=== PATIENT | male | born 1985 | race Hispanic/Latino ===

== ENCOUNTER 2024-04-14 19:47 | Emergency (ER) | payer BC ==
[2024-04-14 20:39] LABS: #Basophils 0.07 10x3/uL (0.0-0.2); #Eosinophils 0.14 10x3/uL (0.0-0.5); #Monocytes 1.48 10x3/uL (0.0-1.1); #Neutrophils 12.04 10x3/uL (1.5-8.4); %Basophils 0.5 % (0.0-2.0); %Eosinophils 0.9 % (0.0-6.0); %Lymphocytes 9.8 % (18.0-47.0); %Monocytes 9.7 % (0.0-10.0); %Neutrophils 78.8 % (40.0-75.0); Hematocrit 43.1 % (38.8-50.0); Hemoglobin 14.8 g/dL (13.5-17.5); Mean Corpuscular HGB CONC 34.3 g/dL (32.0-36.0); Mean Corpuscular Hemoglobin 30.7 pg (27.0-33.0); Mean Corpuscular Volume 89.4 fL (81.2-95.1); Mean Platelet Volume 10.7 fL (7.4-10.4); Platelet Count 241 10x3/uL (150-450); RBC Distribution Width 14.9 % (11.5-14.5); Red Blood Cell (RBC) Count 4.82 10x6/uL (4.32-5.72); White Blood Cell (WBC) Count 15.3 10x3/uL (3.5-10.5)
[2024-04-14 20:53] LABS: Anion Gap 15 mmol/L (10-20); BUN (Urea Nitrogen) 17 mg/dL (8.9-20.6); Calc. Creatinine Clearance 0 mL/min (70-130); Calcium 9.6 mg/dL (7.8-10.44); Carbon Dioxide 21 mmol/L (22-29); Chloride 105 mmol/L (98-107); Estimated GFR 102; Glucose 112 mg/dL (70-105); Potassium 3.9 mmol/L (3.5-5.1); Sodium 137 mmol/L (136-145)
[2024-04-14] MEDS ORDERED: Piperacillin/Tazobactam 3.375 GM VIAL ONE (22:50)
[2024-04-14] MEDS ORDERED: Morphine 4 MG/ML VIAL ONE (23:01)
[2024-04-14] MEDS ORDERED: Ondansetron PF 4 MG/2 ML Vial ONE (23:01)
== END 2024-04-14 23:00 | disposition home or self-care (01) ==
LOC: CSHERS 19:47
DX: K57.92 Diverticulitis of intestine, part unspecified, without perforation or abscess without bleeding (principal); F17.210 Nicotine dependence, cigarettes, uncomplicated
CPT/HCPCS: 74177; 80048; 85025; 96374; 96375; J2272; J2405; J2543